=== PATIENT | male | born 1975 | race Caucasian/White ===

== ENCOUNTER → 2018-11-01 | Outpatient (CLI) | payer BC | END | disposition home or self-care (01) | LOC: CFH 09:05 | PROVIDERS: ATTEND Nurse Practitioner | DX: J45.40 Moderate persistent asthma, uncomplicated (principal) | CPT/HCPCS: 71250 ==

== ENCOUNTER 2019-09-03 11:41 | Emergency (ER) | payer BC, OTHER ==
[~2019-09-03] VITALS: Ht 182.9 cm; Wt 98.0 kg
[2019-09-03 11:43] VITALS: BP 132/83
[2019-09-03] MEDS ORDERED: FLUORESCEIN OPHTHALMIC 1 MG STRIP ONE (12:44)
[2019-09-03] MEDS ORDERED: PROPARACAINE OPHTH 0.5%, 15ML ONE (12:44)
--- NOTE | 2019-09-03 12:54 | NUR ---
report given to Jaja.
[2019-09-03] MEDS ORDERED: PROPARACAINE OPHTH 0.5%, 15ML RIGHTEYE ONE (13:00)
[2019-09-03] MEDS ORDERED: FLUORESCEIN OPHTHALMIC 1 MG STRIP RIGHTEYE ONE (13:00)
--- NOTE | 2019-09-03 13:18 | NUR ---
PT TOLD TECH THAT HE IS TIRED OF WAITING AND HE WAS GOING TO GO TO [facility]
== END 2019-09-03 13:21 | disposition left against medical advice (07) ==
LOC: ED 12:42
DX: H57.12 Ocular pain, left eye (principal); Z53.21 Procedure and treatment not carried out due to patient leaving prior to being seen by health care provider